=== PATIENT | female | born 1955 | race Caucasian/White ===

== ENCOUNTER 2016-10-03 08:02 | Inpatient (IN) | payer BC ==
[2016-10-03] MEDS ORDERED: SODIUM CHLORIDE 0.9% 1,000 ML IV ONE (08:03)
[2016-10-03] MEDS ORDERED: SODIUM CHLORIDE 0.9% 1,000 ML in EMPTY BAG 1 BAG IV ONE (08:23)
[2016-10-03] MEDS ORDERED: ATORVASTATIN 80 MG TAB PO STA (08:23)
[2016-10-03] MEDS ORDERED: ASPIRIN 325 MG TAB PO STA (08:23)
[2016-10-03] MEDS ORDERED: NITROGLYCERIN SL TABS 0.4 MG TAB SUBLINGUAL PRN (08:23)
[2016-10-03] MEDS ORDERED: ALPRAZolam 0.25 MG TAB PO PRN (08:23)
[2016-10-03] MEDS ORDERED: ALPRAZolam 0.5 MG TAB PO PRN (08:23)
[2016-10-03] MEDS ORDERED: MIDAZOLAM 2 MG/2 ML VIAL ONE ×2 (09:33→09:52)
[2016-10-03] MEDS ORDERED: MIDAZOLAM 2 MG/2 ML VIAL IVP ONE ×2 (09:33→09:54)
[2016-10-03] MEDS ORDERED: HEPARIN SODIUM 1,000 UNIT/ML VIAL ONE (09:35)
[2016-10-03] MEDS ORDERED: LIDOCAINE 2% INJ 20 MG/ML SQ ONE (09:40)
[2016-10-03] MEDS ORDERED: LIDOCAINE 2% (PF) 20 MG/ML 10ML SQ ONE (09:40)
[2016-10-03] MEDS ORDERED: fentaNYL (PF) 50 MCG/ML 2 ML AMP ONE (09:43)
[2016-10-03] MEDS ORDERED: fentaNYL (PF) 50 MCG/ML 2 ML AMP IV ONE (09:45)
[2016-10-03] MEDS ORDERED: VERAPAMIL SYRINGE (5 MG/10 ML) INTRAARTER ONE ×2 (09:51→10:01)
[2016-10-03] MEDS ORDERED: HEPARIN SODIUM 1,000 UNIT/ML VIAL IV ONE (09:55)
[2016-10-03] MEDS ORDERED: IOHEXOL 300 MG/ML 100 ML BOTTLE IV ONE (10:03)
[2016-10-03] MEDS ORDERED: RX INFO: IV CONTRAST WAS GIVEN 1 EACH MISC MISCELLANE PRN (10:08)
[2016-10-03] MEDS ORDERED: SODIUM CHLORIDE 0.9% 1,000 ML IV SCH (10:15)
[2016-10-03 10:28] VITALS: RESP 16; TEMP 97.2
--- NOTE | 2016-10-03 11:51 | CC ---
DATE OF SERVICE: 10/03/2016 PERFORMING PHYSICIAN: Andrea Shell, Pattern Clerk. PROCEDURE PERFORMED: 1. Selective right and left coronary angiogram. 2. Left heart catheterization. INDICATIONS: This is a pleasant 61-year-old female patient who presented to [facility] with chest discomfort and ruled in for acute non-ST elevation myocardial infarction. Heart catheterization was recommended to rule out any severe underlying coronary artery disease. APPROACH: Right radial artery. COMPLICATIONS: None. LEVEL OF SEDATION: Moderate to severe with sedation length of 30 minutes. PROCEDURE DESCRIPTION: After obtaining an informed consent, the patient was brought to the Cardiac Show Host/Hostess. The right radial artery was cannulated using micropuncture technique and micropuncture wire passed easily, then I placed a 6 Khmer sheath in right radial artery. Subsequently, I did selective right and left coronary angiogram using JR4 and JL3.5 catheters. Then I did left heart catheterization using a 6 Khmer pigtail catheter. The procedure was completed without any complication. SELECTIVE CORONARY ANGIOGRAM: 1. Right coronary artery is a large-caliber vessel and it is a dominant vessel. It is angiographically normal. It bifurcates into PDA and PLV branches; both are angiographically normal. 2. The left main is angiographically normal. It bifurcates into the left circumflex and left anterior descending artery. 3. The left circumflex is a large-caliber vessel and it is a nondominant vessel. The left circumflex is angiographically normal as well. 4. Left descending artery, the proximal LAD is normal. The mid LAD is normal and gives rise to diagonal branch, which seems to be angiographically normal and the LAD is angiographically normal. HEMODYNAMICS: The left ventricular end-diastolic pressure was 60 mmHg and no gradient was identified across the aortic valve. CONCLUSION: 1. Normal coronary angiogram. 2. Normal left ventricular end-diastolic pressure. POSTPROCEDURE MANAGEMENT: Medical treatment.
--- NOTE | 2016-10-03 13:03 | P.HPIM ---
History of Present Illness H&P Date: 10/03/16 Chief Complaint: Chest pain for left heart catheterization. History of physical and discharge summary This is a 61-year-old female one of Dr. Fermin with a previous medical history significant for hypertension and hypertensive cardiovascular disease, hypokalemia, obesity with obstructive sleep apnea, chronic tobacco use and dependence, patient presented to the emergency department at [facility] due to 2 day history of midsternal chest pressure associated with left jaw pain, patient initially thought that she is having acid reflux and patient ended up getting some nitroglycerin and she was brought into the emergency department at [facility] for evaluation she was admitted to hospital and she was seen and evaluated by cardiology her cardiac enzymes were nondiagnostic and because of her presentation she ended up getting transferred to [facility] for left heart catheterization and possible PCI surprisingly left heart cath physician came back totally normal without any evidence of acute coronary artery disease, patient did have a radial approach and she was admitted to the hospital as an observation and she is to be discharged home mother onto the next few hours, since she was released by cardiology. Review of Systems Constitutional: Reports weight gain, Denies chills, Denies chronic headaches, Denies lethargy, Denies malaise, Denies weakness, Denies weight loss Eyes: denies blurred vision, denies bulging eye, denies decreased vision Ears: deny: decreased hearing Ears, nose, mouth and throat: Denies dysphagia, Denies neck lump, Denies sore throat, Denies vertigo Cardiovascular: Reports chest pain, Reports decreased exercise tolerance, Reports dyspnea on exertion, Reports high blood pressure, Reports shortness of breath, Denies irregular heart beat, Denies paroxysmal nocturnal dyspnea, Denies phlebitis, Denies rapid heart beat, Denies syncope Respiratory: Reports sleep apnea, Reports snoring, Denies congestion, Denies cough, Denies cough with sputum, Denies home oxygen, Denies wheezing Gastrointestinal: Denies abdominal pain, Denies belching, Denies BRBPR, Denies change in bowel habits, Denies dyspepsia, Denies early satiety, Denies melena, Denies nausea, Denies vomiting Genitourinary: Reports urge incontinence, Reports urinary frequency, Denies dysuria, Denies hematuria Menstruation: Reports post hysterectomy Musculoskeletal: Denies myalgias Musculoskeletal: absent: ankle pain, ankle stiffness, ankle swelling, elbow pain , elbow stiffness, elbow swelling, foot pain, foot stiffness, foot swelling, hand pain, hand stiffness, hand swelling, hip pain, hip stiffness, hip swelling , knee pain, knee stiffness, knee swelling, shoulder pain, shoulder stiffness, shoulder swelling, wrist pain, wrist stiffness, wrist swelling Integumentary: Denies pruritus, Denies rash Neurological: Denies numbness, Denies weakness Psychiatric: Denies anxiety, Denies depression Endocrine: Denies fatigue, Denies weight change Past Medical History Past Medical History: Cancer, GERD/Reflux, Hyperlipidemia, Hypertension, Osteoarthritis (OA), Sleep Apnea/CPAP/BIPAP Additional Past Medical History / Comment(s): Pt presented to [facility] with NSTEMI on 10/01/16. She transferred to [facility] 10/03/16 for cardiac cath. Other hx: CHRISSY with CPAP, overactive bladder, precancer of cervix (hysterectomy). History of Any Multi-Drug Resistant Organisms: None Reported Past Surgical History: Bladder Surgery, Cholecystectomy, Heart Catheterization, Hysterectomy Additional Past Surgical History / Comment(s): 10/03/16 Cardiac cath. Other surgical hx: bladder sling, colonoscopy. Past Anesthesia/Blood Transfusion Reactions: No Reported Reaction Past Psychological History: No Psychological Hx Reported Additional Psychological History / Comment(s): Pt resides alone. She is independent. Smoking Status: Current every day smoker (Patient smokes about a pack every day for 4 years and she is currently a smoker.) Past Alcohol Use History: Rare Additional Past Alcohol Use History / Comment(s): Pt started smoking in 1974 and is a ppd smoker. Past Drug Use History: None Reported - Past Family History Father Family Medical History: Cancer (Father at age of 89 from lung cancer with metastatic disease.) Additional Family Medical History / Comment(s): Father at the age of 89yrs from lung cancer with mets. Mother Family Medical History: Coronary Artery Disease (CAD) (Mother at age of 86 from pneumonia with heart disease and she had a PCI and stent placement.), Pneumonia Additional Family Medical History / Comment(s): Mother at the age of 86yrs with pneumonia. She also had CAD and a cardiac stent. Sister(s) Family Medical History: No Reported History (Patient has one sister no major medical problems.) Brother(s) Family Medical History: No Reported History (Patient has have a brother without any major medical problems.) Medications and Allergies Home Medications Medication Instructions Recorded Confirmed Type Losartan [Cozaar] 50 mg PO DAILY 10/03/16 10/03/16 History Solifenacin Succinate [Vesicare] 5 mg PO DAILY 10/03/16 10/03/16 History Venlafaxine HCl [Effexor XR] 75 mg PO DAILY 10/03/16 10/03/16 History Allergies Allergy/AdvReac Type Severity Reaction Status Date / Time shellfish derived [Shellfish] Allergy Itching Verified 10/03/16 08:14 Physical Exam Vitals: Vital Signs Temp Pulse Pulse Resp BP BP Pulse Ox 10/03/16 11:35 74 16 132/87 94 L 10/03/16 11:05 75 16 136/82 94 L 10/03/16 10:50 94 16 134/61 93 L 10/03/16 10:35 71 16 163/64 94 L 10/03/16 10:20 97.2 F L 64 16 138/63 93 L 10/03/16 08:04 97.8 F 75 18 143/62 141/70 95 Intake and Output 10/02/16 10/03/16 10/03/16 22:59 06:59 14:59 Intake Total 150 Output Total 500 Balance -350 Intake: IV 150 Output: Urine 500 Other: Weight 134.3 kg Patient Weight 10/04/16 06:59 Weight 134.3 kg - Constitutional General appearance: no acute distress, obese - EENT Eyes: EOMI, PERRLA, no ptosis, no scleral icterus, normal appearance ENT: hearing grossly normal, NA/AT, normal oropharynx, no thrush Ears: bilateral: normal - Neck Neck: no lymphadenopathy, normal ROM, no rigidity, no stridor, no thyromegaly Carotids: bilateral: upstroke normal Thyroid: bilateral: normal size - Respiratory Respiratory: bilateral: diminished, negative: dullness, rales, rhonchi, wheezing , prolonged expiration, prolonged inspiration - Cardiovascular Rhythm: regular Heart sounds: normal: S1, S2 Abnormal Heart Sounds: no systolic murmur, no S3 Gallop, no S4 Gallop - Gastrointestinal General gastrointestinal: normal bowel sounds, soft, no splenomegaly, no tenderness, no umbilical hernia, no ventral hernia - Integumentary Integumentary: normal, normal turgor - Neurologic Neurologic: CNII-XII intact - Musculoskeletal Musculoskeletal: gait normal, strength equal bilaterally - Psychiatric Psychiatric: A&O x's 3, appropriate affect, intact judgment & insight Thrombosis Risk Factor Assmnt - DVT/VTE Prophylaxis DVT/VTE Prophylaxis: Pharmacologic Prophylaxis ordered, Mechanical Prophylaxis ordered - Choose All That Apply Any of the Below Risk Factors Present?: Yes Each Factor Represents 1 point: Acute NC, Age 41-60 years, Obesity (BMI >25) Other Risk Factors: No Other congenital or acquired thrombophilia - If yes, enter type in comment: No Thrombosis Risk Factor Assessment Total Risk Factor Score: 3 Thrombosis Risk Factor Assessment Level: Moderate Risk Assessment and Plan Plan: Assessment and plan: 1. Chest pain post left heart catheterization that showed normal coronary arteries. Patient was instructed about risk factor modification including weight loss and smoking cessation and counseling because of increased risk of CAD, CVA, and malignancy, patient will be discharged home since she was cleared to be discharged by the cardiology service. She is to follow-up with her primary care physician as an outpatient in about 2-3 days, she is to follow-up with cardiology per their recommendation.. 2. Hypertension and hypertensive cardiovascular disease. Continue patient on losartan 50 mg orally once every day. 3. Overactive bladder. Continue patient on Vesicare 10 mg orally once every day. 4. Obesity with obstructive sleep apnea. Continue patient on CPAP. 5. Patient is okay to be discharged home if cleared by cardiology. 6. Follow-up with primary care physician in one week. 7. Follow-up with cardiology per their recommendation.
[2016-10-03 14:22] VITALS: BP 126/72; PULSE 76
== END 2016-10-03 15:12 | disposition home or self-care (01) | DRG 287 ==
LOC: 6SEL 08:02
PROVIDERS: ADMIT Internal Medicine Geriatric Medicine; ATTEND Internal Medicine Geriatric Medicine
PROC: B2111ZZ Fluoroscopy of Multiple Coronary Arteries using Low Osmolar Contrast (ICD-10-PCS; 2016-10-03)
PROC: 4A023N7 Measurement of Cardiac Sampling and Pressure, Left Heart, Percutaneous Approach (ICD-10-PCS; principal; 2016-10-03 09:20)
DX: R07.9 Chest pain, unspecified (principal); Z68.42 Body mass index [BMI] 45.0-49.9, adult; I11.9 Hypertensive heart disease without heart failure; E66.9 Obesity, unspecified; R68.84 Jaw pain; N32.81 Overactive bladder; G47.33 Obstructive sleep apnea (adult) (pediatric); F17.200 Nicotine dependence, unspecified, uncomplicated; K21.9 Gastro-esophageal reflux disease without esophagitis; E78.5 Hyperlipidemia, unspecified; M19.90 Unspecified osteoarthritis, unspecified site; Z79.899 Other long term (current) drug therapy; Z82.49 Family history of ischemic heart disease and other diseases of the circulatory system
CPT/HCPCS: 93458

== ENCOUNTER 2023-05-30 07:32 | Day surgery (SDC) | payer BC, MEDICARE ==
[2023-05-29 11:56] VITALS: BMI 49.9
[~2023-05-30 07:32] MED LIST: LIDOCAINE 1% (10MG/ML) FOR IV START INTRADERMA PRN
--- NOTE | 2023-05-30 08:11 | P.GSHP ---
History of Present Illness H&P Date: 05/30/23 CHIEF COMPLAINT: Colon screen HISTORY OF PRESENT ILLNESS: The patient is a 67-year-old female who presents for colon screen. Lower endoscopy was offered for further evaluation and management. PAST MEDICAL HISTORY: Please see list. PAST SURGICAL HISTORY: Please see list. MEDICATIONS: Please see list. ALLERGIES: Please see list. SOCIAL HISTORY: No illicit drug use FAMILY HISTORY: No reports of Crohn disease or ulcerative colitis. REVIEW OF ORGAN SYSTEMS: CONSTITUTIONAL: No reports of fevers or chills. PHYSICAL EXAM: VITAL SIGNS: Stable GENERAL: Well-developed pleasant in no acute distress. HEENT: No scleral icterus. Extraocular movements grossly intact. Moist buccal mucosa. NECK: Supple without lymphadenopathy. CHEST: Unlabored respirations. Equal bilateral excursions. CARDIOVASCULAR: Regular rate and rhythm. Distal 2+ pulses. ABDOMEN: Soft, nontender, nondistended. MUSCULOSKELETAL: No clubbing, cyanosis, or edema. ASSESSMENT: 1. Colon screen. PLAN: 1. Recommend proceeding with a lower endoscopy Past Medical History Past Medical History: GERD/Reflux, Hyperlipidemia, Hypertension, Osteoarthritis (OA), Sleep Apnea/CPAP/BIPAP Additional Past Medical History / Comment(s): Pt presented to [facility] with NSTEMI on 10/01/16. She transferred to [facility] 10/03/16 for cardiac cath. Other hx: CHRISSY with CPAP, overactive bladder, precancer of cervix (hysterectomy). History of Any Multi-Drug Resistant Organisms: None Reported Past Surgical History: Bladder Surgery, Cholecystectomy, Heart Catheterization, Hysterectomy Additional Past Surgical History / Comment(s): 10/03/16 Cardiac cath. Other surgical hx: bladder sling, colonoscopy. Past Anesthesia/Blood Transfusion Reactions: No Reported Reaction Additional Past Anesthesia/Blood Transfusion Reaction / Comment(s): no blood transfusion Smoking Status: Former smoker - Past Family History Father Family Medical History: Cancer Additional Family Medical History / Comment(s): Father at the age of 89yrs from lung cancer with mets. Mother Family Medical History: Coronary Artery Disease (CAD), Pneumonia Additional Family Medical History / Comment(s): Mother at the age of 86yrs with pneumonia. She also had CAD and a cardiac stent. Sister(s) Family Medical History: No Reported History Brother(s) Family Medical History: No Reported History Medications and Allergies Home Medications Medication Instructions Recorded Confirmed Type Losartan [Cozaar] 50 mg PO DAILY 10/03/16 05/29/23 History Ascorbic Acid [Vitamin C] 1,000 mg PO DAILY 05/29/23 05/29/23 History Cranberry Fruit Extract [Cranberry] 500 mg PO DAILY 05/29/23 05/29/23 History Cyanocobalamin (Vitamin B-12) 1,000 mcg PO DAILY 05/29/23 05/29/23 History [Vitamin B-12] Nathalia 500 mg PO DAILY 05/29/23 05/29/23 History Glucosa Dominguez 2Kcl/Chondroitin Dominguez 1 each PO DAILY 05/29/23 05/29/23 History [Glucosamine-Chondroitin Cap] Mirabegron [Myrbetriq] 50 mg PO DAILY 05/29/23 05/29/23 History amLODIPine [Norvasc] 5 mg PO DAILY 05/29/23 05/29/23 History metFORMIN HCL 500 mg PO DAILY 05/29/23 05/29/23 History Allergies Allergy/AdvReac Type Severity Reaction Status Date / Time shellfish derived [Shellfish] Allergy Itching Verified 05/30/23 08:11 Surgical - Exam Vital Signs Temp Pulse Resp BP Pulse Ox 97.5 F L 78 20 170/67 95 05/30/23 08:10 05/30/23 08:10 05/30/23 08:10 05/30/23 08:10 05/30/23 08:10
[2023-05-30 08:12] VITALS: RESP 20; TEMP 97.5
[2023-05-30 08:18] LABS: Glucose,Whole Blood 174 mg/dL (70-110)
[2023-05-30] MEDS: LACTATED RINGERS 1,000 ML IV SCH ×2 (08:18→08:32)
[2023-05-30] MEDS ORDERED: PROPOFOL 10 MG/ML 20 ML VIAL IV ONE (08:34)
[2023-05-30] MEDS ORDERED: LIDOCAINE 1% INJ 10MG/ML (20 ML MDV) ONE (08:34)
--- NOTE | 2023-05-30 09:07 | P.PCN ---
Date of Procedure: 05/30/23 Description of Procedure: PREOPERATIVE DIAGNOSIS: Personal history colon polyps Family history colon cancer Colonoscopy screening. POSTOPERATIVE DIAGNOSIS: Colonoscopy screening. Diverticulosis, scattered. OPERATION: Colonoscopy to the cecum, ileocecal valve and appendiceal orifice. SURGEON: Arpita Garcia MD. ANESTHESIA: MAC. INDICATIONS: The patient is a 67-year-old female who presents for colonoscopy screening. Last colonoscopy over 5 years. Benefits and risks were described and informed c onsent was obtained. DESCRIPTION OF PROCEDURE: The patient had undergone Sutab prep. The patient had been brought into the operating room and laid in the left lateral decubitus position. After adequate intravenous sedation, the rectum was examined with 2% lidocaine jelly. No external hemorrhoids were encountered. The rectal tone was within normal limits. No lesions were palpated in the rectal vault. An Olympus colonoscope was advanced until the cecum, ileocecal valve and appendiceal orifice were clearly viewed. The prep was fair. Scattered diverticulosis was encountered. No colonic polyps were found. No evidence of focal colitis was found. Retroflexion of the scope demonstrated grade 1 internal hemorrhoids without active bleeding or inflammation. The colon was desufflated. The patient had tolerated the procedure well. Withdrawal time was over 6 minutes. FINDINGS: Aronchick preparation quality scale 2+(1-5) Internal hemorrhoids, grade 1 No external prolapsed hemorrhoids. No arteriovenous malformations. No adenomatous polyps. No focal colitis. Scattered sigmoid diverticulosis RECOMMENDATIONS: Lower endoscopy in 5 years, 2027 Plan - Discharge Summary Discharge Rx Participant: No New Discharge Prescriptions: Continue Losartan [Cozaar] 50 mg PO DAILY amLODIPine [Norvasc] 5 mg PO DAILY Mirabegron [Myrbetriq] 50 mg PO DAILY Nathalia 500 mg PO DAILY Glucosa Dominguez 2Kcl/Chondroitin Dominguez [Glucosamine-Chondroitin Cap] 1 each PO DAILY Cyanocobalamin (Vitamin B-12) [Vitamin B-12] 1,000 mcg PO DAILY metFORMIN HCL 500 mg PO DAILY Cranberry Fruit Extract [Cranberry] 500 mg PO DAILY Ascorbic Acid [Vitamin C] 1,000 mg PO DAILY Discharge Medication List Losartan [Cozaar] 50 mg PO DAILY 10/03/16 [History] Ascorbic Acid [Vitamin C] 1,000 mg PO DAILY 05/29/23 [History] Cranberry Fruit Extract [Cranberry] 500 mg PO DAILY 05/29/23 [History] Cyanocobalamin (Vitamin B-12) [Vitamin B-12] 1,000 mcg PO DAILY 05/29/23 [History] Nathalia 500 mg PO DAILY 05/29/23 [History] Glucosa Dominguez 2Kcl/Chondroitin Dominguez [Glucosamine-Chondroitin Cap] 1 each PO DAILY 05/29/23 [History] Mirabegron [Myrbetriq] 50 mg PO DAILY 05/29/23 [History] amLODIPine [Norvasc] 5 mg PO DAILY 05/29/23 [History] metFORMIN HCL 500 mg PO DAILY 05/29/23 [History] Follow up Appointment(s)/Referral(s): Arpita Garcia MD [STAFF PHYSICIAN] - As Needed Patient Instructions/Handouts: Diverticulosis Diet (GEN), Diverticulosis (DC) Activity/Diet/Wound Care/Special Instructions: Repeat colon screening 5 years, 2027 Discharge Disposition: HOME SELF-CARE
[2023-05-30 09:26] VITALS: BP 150/67; PULSE 71
== END 2023-05-30 09:37 | disposition home or self-care (01) ==
LOC: ORWHC2ENDO 07:32
PROVIDERS: ATTEND Surgery Plastic and Reconstructive Surgery
DX: Z12.11 Encounter for screening for malignant neoplasm of colon (principal); K57.90 Diverticulosis of intestine, part unspecified, without perforation or abscess without bleeding; K21.9 Gastro-esophageal reflux disease without esophagitis; E78.5 Hyperlipidemia, unspecified; I10 Essential (primary) hypertension; G47.33 Obstructive sleep apnea (adult) (pediatric); M19.90 Unspecified osteoarthritis, unspecified site; Z90.49 Acquired absence of other specified parts of digestive tract; Z90.710 Acquired absence of both cervix and uterus; Z79.84 Long term (current) use of oral hypoglycemic drugs; Z98.890 Other specified postprocedural states; Z80.0 Family history of malignant neoplasm of digestive organs; Z91.013 Allergy to seafood; Z87.891 Personal history of nicotine dependence; Z79.899 Other long term (current) drug therapy
CPT/HCPCS: J2001; J2704; G0105

== ENCOUNTER → 2025-01-13 | Day surgery (SDC) | payer MEDICARE ==
[~2025-01-13] MED LIST changes: +ALPRAZolam 0.25 MG TAB PO PRN; +ALPRAZolam 0.5 MG TAB PO PRN; +ATORVASTATIN 80 MG TAB PO STA; +BENZOCAINE SPRAY 1 EACH MM PRN; -LIDOCAINE 1% (10MG/ML) FOR IV START INTRADERMA PRN; +NITROGLYCERIN SL TABS 0.4 MG TAB SUBLINGUAL PRN; +RX INFO: IV CONTRAST WAS GIVEN 1 EACH MISC MISCELLANE PRN; +SODIUM CHLORIDE 0.9% 1,000 ML IV SCH; +fentaNYL (PF) 50 MCG/ML 2 ML AMP IVP PRN
[2025-01-13] MEDS: SODIUM CHLORIDE 0.9% 1,000 ML in EMPTY BAG 1 BAG IV SCH (06:23)
[2025-01-13] MEDS: IV FLUID CONTINUATION 1,000 ML IV ONE (06:27)
[2025-01-13] MEDS: ASPIRIN 325 MG TAB PO STA (06:30)
[2025-01-13 06:34] LABS: Glucose,Whole Blood 199 mg/dL (70-110)
[2025-01-13 06:43] LABS: Basophils # (A) 0.05 10*3/uL (0.00-0.10); Basophils % (A) 0.4 %; Eosinophils # (A) 0.32 10*3/uL (0.04-0.35); Eosinophils % (A) 2.7 %; HCT 38.9 % (37.2-46.3); HGB 12.9 g/dL (12.0-15.0); Lymphocytes # (A) 0.99 10*3/uL (0.90-5.00); Lymphocytes % (A) 8.3 %; MCH 29.5 pg (27.0-32.0); MCHC 33.2 g/dL (32.0-37.0); Mean Platelet Volume 9.2 fL (9.5-12.2); Neutrophils # (A) 9.93 10*3/uL (1.80-7.70); Platelet Count 400 10*3/uL (140-440); RBC 4.37 10*6/uL (4.10-5.20); RDW 14.6 % (11.5-14.5); WBC 11.96 10*3/uL (4.50-10.00)
[2025-01-13 06:51] LABS: African American GFR (CKD) >90 (>60 ml/min/1.73 sqM); Anion Gap 6 mmol/L; Blood Urea Nitrogen 17 mg/dL (7-17); Calcium 9.4 mg/dL (8.4-10.2); Carbon Dioxide 29 mmol/L (22-30); Chloride 102 mmol/L (98-107); Glucose 210 mg/dL (74-99); Non-African American GFR(CKD) >90 (>60 ml/min/1.73 sqM); Sodium 137 mmol/L (137-145)
[2025-01-13 06:52] LABS: Potassium 4.7 mmol/L (3.5-5.1)
[2025-01-13 07:17] VITALS: TEMP 97.9
[2025-01-13] MEDS: IV FLUID CONTINUATION 750 ML IV ONE (07:42)
[2025-01-13] MEDS: BENZOCAINE SPRAY 1 EACH MUCOUS MEM ONE ×2 (07:46→07:52)
[2025-01-13] MEDS: MIDAZOLAM 2 MG/2 ML VIAL IVP ONE ×2 (07:52→08:00)
[2025-01-13] MEDS: fentaNYL (PF) 50 MCG/1 ML VIAL IVP ONE (07:53)
[2025-01-13] MEDS: MIDAZOLAM 2 MG/2 ML VIAL IV PRN (07:55)
--- NOTE | 2025-01-13 08:10 | P.PCN ---
Date of Procedure: 01/13/25 Operative Findings: TRANSESOPHAGEAL ECHOCARDIOGRAM CAR REPAIRER: GENESIS VELASQUEZ MD, RPVI INDICATION: Aortic stenosis SEDATION: Conscious sedation COMPLICATION: None LEVEL OF SEDATION Moderate with sedation length of 20 minutes PROCEDURE DESCRIPTION: After obtaining an informed consent, the patient was brought to transesophageal echocardiogram room. Pulse oximetry and heart monitors were attached to the patient. The patient throat was sprayed using lidocaine. The patient was turned into left lateral position. After that a bite guard was placed. After an appropriate conscious sedation was initiated, the transesophageal echocardiogram was advanced through a bite guard into the mid esophagus. A 2-D echocardiogram images, color Doppler images, continuous wave images, pulse-wave images, of various cardiac structure were performed. After that the transesophageal echocardiogram probe was advanced into the stomach and fixed to obtain transgastric view was. The probe was brought into the mid esophagus. Inter-atrial septum was interrogated using 2D images, color Doppler images, and then contrast study. After that transesophageal echocardiogram was withdrawn out and upon withdrawing the descending thoracic aorta all the way up to the arch was evaluated. CONCLUSION: 1. Normal biventricular dimension and systolic function 2. Trileaflet aortic valve with moderate aortic stenosis and peak gradient of 38 and mean of 26 mmHg 3. Mild to moderate mitral regurgitation 4. Normal tricuspid valve and pulmonic valve 5. Intact left atrial appendage and intact interatrial septum 6. No evidence of pericardial effusion
[2025-01-13] MEDS: LIDOCAINE 1% INJ 10MG/ML (20 ML MDV) SQ ONE (08:15)
[2025-01-13] MEDS: VERAPAMIL SYRINGE (5 MG/10 ML) INTRAARTER ONE (08:17)
[2025-01-13] MEDS: HEPARIN SODIUM,PORCINE 10,000 UNIT in SODIUM CHLORIDE 0.9% 1,000 ML IRRIGATION PRN (08:19)
[2025-01-13] MEDS: HEPARIN SODIUM,PORCINE (1 ML) 2,500 UNIT in SODIUM CHLORIDE 0.9% 250 ML IRRIGATION PRN (08:19)
[2025-01-13] MEDS: HEPARIN SODIUM 1,000 UN/ML (10ML VL) IV ONE (08:22)
[2025-01-13] MEDS: IOPAMIDOL-370 100ML BTL INJ ONE (08:39)
--- NOTE | 2025-01-13 08:42 | P.PCN ---
Date of Procedure: 01/13/25 Operative Findings: CARDIAC CATHETERIZATION PERFORMING PHYSICIAN: Tanner Gallardo MD, RPVI PROCEDURE PERFORMED: 1. Selective right and left coronary angiogram 2. Left heart catheterization and right heart catheterization 3. Ultrasound-guided access of the right radial artery INDICATION: Aortic stenosis COMPLICATION: None APPROACH: Right radial artery LEVEL OF SEDATION: Moderate with a sedation length of 28 minutes PROCEDURE DESCRIPTION: After obtaining an informed consent, the patient was brought to cardiac general labor forklift operator. Local anesthesia was performed using lidocaine subcutaneously. The right radial artery was cannulated using Seldinger technique, under ultrasound guidance, the guidewire passed easily, following that we advanced a 5-English sheath dilator assembly, the wire and dilator were removed and sheath was flushed. Following that, 2 mg of verapamil along with 5000 unit heparin were given. Selective right and left coronary angiogram using a 5-English JR4 and JL 3.5 catheters. Following that we did left heart catheterization using 5-English pigtail catheter. Right heart catheterization was performed using [place] catheter The procedure was completed there was no complication. SELECTIVE CORONARY ANGIOGRAM: The right coronary artery: Large caliber vessel and a dominant vessel with mild disease only Left main: Is angiographically normal The left circumflex: Large caliber vessel with no evidence of high-grade stenosis and nondominant vessel as well. The left anterior descending artery: Large caliber vessel with mild disease only with no evidence of high-grade stenosis HEMODYNAMICS: The wedge pressure was 23 mmHg PA pressures were as follow systolic of 52 and diastolic of 14 and mean of 33 mmHg RV pressures were as follows systolic of 58 and end-diastolic of 18 mmHg Right atrial pressure was 10 mmHg LV pressures were as follows systolic of 157 and diastolic of 22 and EDP of 18 mmHg The aortic valve mean gradient was 35 mmHg The aortic valve area was 1.21 cm with indexed area of 0.52 cm/m The cardiac output was 7.20 L/min with a cardiac index of 3.06 L/min/m CONCLUSION: 1. Mild nonobstructive coronary artery disease 2. Moderate aortic stenosis by gradient and by area POSTPROCEDURE MANAGEMENT: Consider monitoring the aortic valve at this point Follow-up with the patient
[2025-01-13 09:09] VITALS: RESP 16
[2025-01-13 13:15] VITALS: BP 119/68; PULSE 74
== END ==
LOC: CATHCVL 05:44
PROVIDERS: ATTEND Internal Medicine Interventional Cardiology
DX: I08.0 Rheumatic disorders of both mitral and aortic valves (principal); I25.10 Atherosclerotic heart disease of native coronary artery without angina pectoris; E78.5 Hyperlipidemia, unspecified; E66.3 Overweight; I10 Essential (primary) hypertension; Z79.82 Long term (current) use of aspirin; Z79.899 Other long term (current) drug therapy
CPT/HCPCS: 93312; 93320; 93325; 93460; 80048; 85025; 99152; C1769; C1894; C1751; J2250; J1644 ×3; J2003; Q9967; J3010